=== PATIENT | female | born 1980 | race Caucasian/White ===

== ENCOUNTER 2018-02-27 14:19 | Observation (INO) | payer MEDICAID ==
[~2018-02-27] VITALS: Ht 172.7 cm; Wt 84.3 kg
[2018-02-27 13:03] VITALS: BP 124/70; PULSE 91
[~2018-02-27 14:19] MED LIST: AMITRIPTYLINE H10 M1 PO; DAZIDOX10 MG PO; ESTRACE2 MG PO; FLOMAX 0.40.4 MG/CAP PO; IBU800 M1 PO; LEXAPRO20 MG PO; METHADONE H10 MG/TAB PO; MORPHINE 1515 MG/TAB PO; NORCO 325 MG-101 TAB PO; PERCOCET 325 MG1 TA2; PERCOCET 325 MG1 TA2 PO; PREDNISONE20 MG PO; ULTRAM 50MG TAB50 MG PO; VALIUM 10MG10 MG/TAB PO; ZOFRAN 4MG T4 MG/TAB PO
[2018-02-27] MEDS ORDERED: DAZIDOX10 MG PO (14:39)
[2018-02-27] MEDS ORDERED: METHADONE H10 MG/TAB PO (14:40)
[2018-02-27] MEDS ORDERED: MULTI VITAMINS1 TAB PO (14:41)
[2018-02-27 14:59] VITALS: BP 124/70; PULSE 91; TEMP 98.6
[2018-02-27 16:00] VITALS: BP 104/55; PULSE 52
[2018-02-27 17:12] VITALS: BP 104/55; PULSE 52; TEMP 98.4
[2018-02-27 20:00] VITALS: BP 107/75; PULSE 57
[2018-02-27 20:30] VITALS: BP 107/75; PULSE 57; TEMP 98.6
[2018-02-28] VITALS (15 sets, daily range): BP systolic 94–138; BP diastolic 36–85; PULSE 50–75; TEMP 97.6–98.6
[2018-03-01 04:13] VITALS: BP 106/45; PULSE 73; TEMP 98.6
[2018-03-01 07:05] VITALS: BP 107/63; PULSE 120; TEMP 97.9
== END 2018-03-01 12:12 | disposition home or self-care (01) ==
LOC: MEDICAL 14:19
DX: N20.1 Calculus of ureter (principal); F17.210 Nicotine dependence, cigarettes, uncomplicated; G89.29 Other chronic pain; M54.9 Dorsalgia, unspecified; F32.9 Major depressive disorder, single episode, unspecified; Z87.442 Personal history of urinary calculi; Z87.448 Personal history of other diseases of urinary system
CPT/HCPCS: C1769; C2617; G0378; G0379; J0690; J1100; J1885; J2270; J2405; J2550; J2704; J3010; J7030; Q9967

== ENCOUNTER 2020-04-01 12:50 | Observation (INO) | payer MEDICAID ==
[~2020-04-01] VITALS: Ht 175.3 cm; Wt 79.1 kg
[~2020-04-01 12:50] MED LIST changes: +MULTI VITAMINS1 TAB PO
--- NOTE | 2020-04-01 13:00 | NUR ---
Patient ambulated to room 348 with spouse. Oriented to room. Denies further needs at this time.
[2020-04-01 13:17] VITALS: BP 112/85; PULSE 106; TEMP 98
--- NOTE | 2020-04-01 13:30 | NUR ---
Dayana CEDILLO in to see patient.
[2020-04-01] MEDS ORDERED: DILAUDID 4MG TAB4 MG PO (13:52)
[2020-04-01] MEDS ORDERED: ESTARYLLA 35 MC1 TAB PO (13:53)
[2020-04-01] MEDS ORDERED: NEURONTIN300 MG/CAP PO (13:54)
[2020-04-01 15:57] VITALS: BP 107/56; PULSE 83; TEMP 98.2
[2020-04-01 17:25] LABS: COLLECTION METHOD CLEAN CATCH
[2020-04-01 17:33] LABS: MUCOUS Present /lpf; PH 5 (5-8); URINE APPEARANCE Hazy; URINE BACTERIA Rare /hpf; URINE BILIRUBIN Negative (NEGATIVE); URINE BLOOD 1+ (NEGATIVE); URINE COLOR Amber; URINE GLUCOSE Negative (NEGATIVE); URINE KETONE 1+ (NEGATIVE); URINE LEUKOCYTE ESTERASE Negative (NEGATIVE); URINE NITRATE Negative (NEGATIVE); URINE PROTEIN(semi-quant) 1+ (NEGATIVE); URINE UROBILINOGEN >=4.0 mg/dL (NEGATIVE)
--- NOTE | 2020-04-01 18:14 | NUR ---
Patient doing well, has requested pain medications x2 this afternoon, medicaitions given per orders. States she feels better this afternoon. Fluids infusing per orders. Denies further needs at this time. Will report off to arch support technician.
[2020-04-01 19:40] VITALS: BP 123/63; PULSE 60; TEMP 97.4
--- NOTE | 2020-04-01 19:50 | NUR ---
Resting in bed. Assessment complete. Lungs clear. Heart sounds normal. Bowels hypoactive. Pulses present throughout. No edema noted. IV right forearm without complications. Reports 7/10 pain and nausea. Given PRN dilaudid and zofran. Denies other needs at this time. Call light in reach.
--- NOTE | 2020-04-01 22:22 | NUR ---
Requested PRN dilaudid for 7/10 pain. Provided at this time. Will monitor.
--- NOTE | 2020-04-01 23:41 | NUR ---
resting in bed. Denies needs. Call light in reach.
[2020-04-01 23:53] VITALS: BP 107/67; PULSE 58; TEMP 98.2
--- NOTE | 2020-04-02 02:00 | NUR ---
Patient resting in bed with no signs of discomfort at this time. Will assess pain when awake.
[2020-04-02 04:00] VITALS: BP 126/72; PULSE 60; TEMP 97.7
--- NOTE | 2020-04-02 04:56 | NUR ---
Reported 8/10 ABD pain. Given PRN dilaudid. Denies other needs. Call light in reach.
--- NOTE | 2020-04-02 06:16 | NUR ---
Patient required x3 doses of dilaudid and x1 dose of zofran for pain control and nausea during night. Otherwise uneventful night. Up ambulating in hallways this AM.
--- NOTE | 2020-04-02 06:44 | NUR ---
Report given to RADHA Null
--- NOTE | 2020-04-02 07:40 | NUR ---
Patient called out to nurses station states pain 6/10 to right flank, states pain worse when she voids. Also states nausea at this time. Medications given per orders. Patient alert and oriented x 3. Assessment complete. Fluids infusing per orders. Denies further needs at this time. Refuses flu vaccine at this time. Denies further needs at this time.
[2020-04-02 07:56] VITALS: BP 118/70; PULSE 56; TEMP 98.1
--- NOTE | 2020-04-02 08:50 | NUR ---
Patient up ambulating in halls, states pain 7/10 after ambulation. Denies further needs a this time. Medicaitons given per orders.
[2020-04-02 12:11] VITALS: BP 117/70; PULSE 64; TEMP 97.7
--- NOTE | 2020-04-02 14:00 | NUR ---
Discharge education provided to patient. Educated on renal colic and when to call provider. Patient states she feels much better now and pain is well controlled. Denies further needs at this time .INT to right forarm discontinued by RN student, catheter tip intact. Denies further needs at this time.
--- NOTE | 2020-04-02 14:28 | NUR ---
Patient out by wheelchair.
== END 2020-04-02 14:28 | disposition home or self-care (01) ==
LOC: SURG 12:58
PROVIDERS: ADMIT Urology
DX: N23 Unspecified renal colic (principal); Z87.442 Personal history of urinary calculi; F41.9 Anxiety disorder, unspecified; G89.29 Other chronic pain; F32.9 Major depressive disorder, single episode, unspecified; Z90.49 Acquired absence of other specified parts of digestive tract; Z90.710 Acquired absence of both cervix and uterus; Z90.721 Acquired absence of ovaries, unilateral; Z88.1 Allergy status to other antibiotic agents; Z88.6 Allergy status to analgesic agent; Z88.0 Allergy status to penicillin; Z88.2 Allergy status to sulfonamides; Z87.891 Personal history of nicotine dependence
CPT/HCPCS: G0378; J1170; J1885; J2405; J7030

== ENCOUNTER 2020-12-05 14:07 | Emergency (ER) | payer MEDICAID ==
[~2020-12-05] VITALS: Ht 175.3 cm; Wt 88.6 kg
[~2020-12-05 14:07] MED LIST changes: +DILAUDID 4MG TAB4 MG PO; +ESTARYLLA 35 MC1 TAB PO; +NEURONTIN300 MG/CAP PO
[2020-12-05 14:19] VITALS: TEMP 98
[2020-12-05 14:35] LABS: COLLECTION METHOD CLEAN CATCH
[2020-12-05 14:43] LABS: MUCOUS Present /lpf; PH 6 (5-8); SQUAMOUS EPITHELIAL 0-2 /hpf; URINE APPEARANCE Hazy; URINE BACTERIA None Seen /hpf; URINE BILIRUBIN Negative (NEGATIVE); URINE BLOOD 2+ (NEGATIVE); URINE COLOR Yellow; URINE GLUCOSE Negative (NEGATIVE); URINE KETONE Negative (NEGATIVE); URINE LEUKOCYTE ESTERASE Negative (NEGATIVE); URINE NITRATE Negative (NEGATIVE); URINE PROTEIN(semi-quant) 1+ (NEGATIVE)
[2020-12-05 15:12] LABS: BASO % 0.3 % (0.0-2.0); EOS % 0.1 % (0-4.0); GRAN # 7.2 (1.4-6.5); GRAN % 72.7 % (42.2-75.2); HEMATOCRIT 39.3 % (37.0-47.0); LYMPH # 2.1 (1.2-3.4); LYMPH % 21.6 % (20.0-51.0); MEAN CELL VOLUME 91 fl (80.0-100.0); MEAN CORPUSCULAR HEMOGLOBIN 30 pg (27.0-31.0); MEAN CORPUSCULAR HGB CONC 33 g/dl (33.0-37.0); MONO # 0.5 (0.1-0.6); MONO % 5.1 % (1.7-9.3); PLATELET COUNT 296 K/mm3 (130-400); RED BLOOD COUNT 4.32 M/mm3 (4.10-5.30); REDCELL DISTRIBUTION WIDTH-CV 12.6 % (11.5-14.5)
[2020-12-05 15:23] LABS: ALBUMIN 4.4 gm/dL (3.5-5.0); BILIRUBIN,TOTAL 0.4 mg/dL (0.0-1.0); CALCIUM 9.4 mg/dL (8.4-10.2); CREATININE, serum 0.67 (0.52-1.25); POTASSIUM 3.8 mmol/L (3.4-5.0); TOTAL PROTEIN 7.9 gm/dL (6.4-8.2)
[2020-12-05] MEDS ORDERED: FLOMAX 0.40.4 MG/CAP PO (17:04)
[2020-12-05] MEDS ORDERED: ZOFRAN ODT4 MG PO (17:04)
[2020-12-05] MEDS ORDERED: PERCOCET 325 MG1 TA2 PO (17:04)
[2020-12-05 18:03] VITALS: BP 132/70; PULSE 75
== END 2020-12-05 18:03 | disposition home or self-care (01) ==
LOC: COL.ER 14:07
PROVIDERS: Personal Emergency Response Attendant
DX: N23 Unspecified renal colic (principal); Z87.442 Personal history of urinary calculi; Z90.49 Acquired absence of other specified parts of digestive tract; Z90.710 Acquired absence of both cervix and uterus
CPT/HCPCS: J1885; J2270; J2405; J7030

== ENCOUNTER → 2022-02-28 | Outpatient (CLI) | payer MEDICAID ==
[~2022-02-28] MED LIST changes: +ZOFRAN ODT4 MG PO
== END ==
LOC: COL.RAD 11:56
DX: E04.2 Nontoxic multinodular goiter (principal)
CPT/HCPCS: A9516

== ENCOUNTER → 2022-03-29 | Outpatient (CLI) | payer MEDICAID ==
[~2022-03-29] VITALS: Ht 175.3 cm; Wt 93.7 kg
[~2022-03-29] MED LIST changes: +EFFEXOR-XR150 MG PO; +PERCOCET 325 MG1 TA3 PO; +VYVANSE30 MG PO
[2022-03-29 12:39] VITALS: BP 115/73; PULSE 64; TEMP 98.9
[2022-03-29 13:30] VITALS: BP 152/87; PULSE 67
== END ==
LOC: COL.RAD 12:00
DX: E04.2 Nontoxic multinodular goiter (principal); R59.0 Localized enlarged lymph nodes
CPT/HCPCS: 32106